=== PATIENT | female | born 1945 | race Two or more races ===

== ENCOUNTER → 2022-12-21 12:44 | Outpatient (BNVA) | payer MEDICARE, SELFPAY | PROVIDERS: PCP Physician Assistant; Visit Provider Nurse Practitioner Family | DX: F09 Unspecified mental disorder due to known physiological condition (principal); I48.91 Unspecified atrial fibrillation; I10 Essential (primary) hypertension; E11.9 Type 2 diabetes mellitus without complications; E78.5 Hyperlipidemia, unspecified; D64.9 Anemia, unspecified | CPT/HCPCS: 99202 ==

== ENCOUNTER 2023-01-31 12:45 | Outpatient (REF) | payer MEDICARE, SELFPAY ==
--- NOTE | 2023-01-31 12:50 | EEG_ITS ---
This is a 16-channel EEG with an EKG lead. Patient is reported awake during the tracing. Background EEG rhythm is 7 to 8 hertz, 5 to 30 microvolt posteriorly and lower amplitude fast anteriorly. Photic stimulation does not produce any significant driving. Hyperventilation is not performed. Cardiac lead does not reveal any significant abnormality. No obvious sharp wave spikes or paroxysmal tendency or asymmetry noted. IMPRESSION: Generalized slowing with no evidence of seizure disorder. MD NIRMALA Zacarias/VIOLETA / [id number]
== END 2023-01-31 12:46 | disposition home or self-care (01) ==
LOC: HO.NEURO 12:45
PROVIDERS: Visit Provider Nurse Practitioner Family
DX: F09 Unspecified mental disorder due to known physiological condition (principal)
CPT/HCPCS: 95816

== ENCOUNTER 2023-04-06 10:42 | Outpatient (AMB) | payer MEDICARE, SELFPAY ==
[2023-04-06 10:46] VITALS: BP 138/84; PULSE 70; O2SAT 92; BMI 32.4
--- NOTE | 2023-04-06 10:46 | MHC.OFFVIS ---
Intake Vital Signs 04/06/23 10:46 Height 5 ft 2 in Weight 177 lb BMI 32.4 BP 138/84 Blood Pressure Location Rt brachial Position Sitting Pulse 70 Pulse Source Pulse Oximeter Pulse Oximetry (%) 92 Oxygen Delivery Method Room Air Intake Visit Reasons: 3m follow up Memory Loss worsening - Confirmed Intake Note: Patient presents for 3 month follow up. Patient states she forgets alot of things,she forgets to take her medication alot. ([facility]) Allergies No Known Allergies Allergy (Verified 04/06/23 10:50) Medication List - Last Reconciled 04/06/23 by SUZANNE Patrick acetaminophen ER 650 mg PO BID albuterol sulfate mg inhalation Q4H PRN albuterol sulfate 90 mcg/actuation 2 puffs inhalation Q6H PRN apixaban (Eliquis) 5 mg PO BID aspirin 1 tab PO DAILY atorvastatin 40 mg PO BEDTIME budesonide-formoterol 160-4.5 mcg/actuation (Symbicort) inhalation BID carvedilol 25 mg PO BID folic acid 1 mg PO DAILY furosemide 20 mg PO DAILY levothyroxine 75 mcg PO QAM lisinopril 20 mg PO DAILY memantine 7 mg PO DAILY 30 days montelukast 10 mg PO BEDTIME omeprazole 20 mg PO QAM spironolactone 25 mg PO DAILY HPI HPI Comments History of Present Illness Details 77-yr-old female presents for f/u visit. Pt denies any significant interval medical changes, however granddtr reports that cardiology is concerned that pt is declining. Possibly because pt may skip or forget to take her medication. Cardiology was to order an urgent sleep study. Pt endorses snoring, nocturia, sleeps from 12am- 10-11ama nd then still needs an early afternoon nap. She did start Namenda xr 7mg- she is tolerating it ok. Pt continues to live home alone. She has 9 hrs of FINGERPRINT CLERK care (her granddtr) and her family who lives in the building continues to cook for her (one good meal a day). Granddtr is hoping pt can have increased FINGERPRINT CLERK hrs, however pt repeatedly tells her insurance nurse telephonic nurse case manager that she is fine and more Ind than she really is. Pt has declined to use a timed med dispenser or most home adaptive equipment. Brain MRI- not done as pacemaker is not MRI compatible. Head CT ordered instead- but pt declined to do through at [facility]. EEG- mild slowly but no seizure activity. Labs- MAGAN- neg, B12- 741 NL, Folic acid- 17.9- NL, homocysteine- 11.7 NL, MMA- 262 NL, RPR- neg, ESR- 23 H, high-sensitivity CRP 4.16 [facility]. [facility] Medical History (Updated 12/21/22 @ 16:37 by SUZANNE Patrick) Anemia Asthma Atrial fibrillation Diabetes HLD (hyperlipidemia) HTN (hypertension) Tubular adenoma Surgical History S/P placement of cardiac pacemaker Family History Mother Heart disease Asthma Sister Dementia Daughter HIV (human immunodeficiency virus infection) Social History Alcohol intake: never Patient Tobacco Use Status: Former Tobacco user Review of Systems Const All systems reviewed & are unremarkable except as noted in HPI and below Physical Exam Vital Signs: Last Vital Signs Pulse 70 04/06/23 10:46 BP 138/84 04/06/23 10:46 Pulse Ox 92 04/06/23 10:46 Oxygen Delivery Method Room Air 04/06/23 10:46 BMI result Body Mass Index 32.4 Const General: cooperative and no acute distress Orientation/consciousness: oriented to person HEENT Head: Yes normocephalic Resp Effort & Inspection: normal respiratory effort and able to speak in complete sentences Neuro Other: A&O to person, place. Responding appropraitely overall w/ some STM lapses. General: oriented to person and gait normal Psych Appearance: grossly normal Speech and movement: Normal speech and movement present Affect: normal affect Attitude: cooperative Assessment & Plan Assessment & Plan (1) Cognitive dysfunction: Code(s): F09 - Unspecified mental disorder due to known physiological condition Plan Increase Namenda XR from 7mg to 14mg qd. Reviewed labs for common etiologies of cognitive impairment- overall unremarkable, ESR and CRP slightly elevated- likely r/t CV dz Reviewed EEG- mild slowing Comprehensive neuro-psych testing as ordered Discussed that pt likely does need increased assistance, however if pt is refusing or not admitting to needing help, we cannot make her to accept increased help at this point. Future considerations- sleep study (through [facility]) if not already ordered by cardiology. f/u in 3 months or sooner prn. Medications: New memantine 14 mg PO DAILY 30 days 30 ea 3RF Discontinued memantine Discontinued Reason: Doctor's Order 7 mg PO DAILY 30 days 30 ea 3RF Coding Level of Care Code Est Pt Level 3 (60865) Diagnoses Cognitive dysfunction F09
== END 2023-04-06 11:32 | disposition home or self-care (01) ==
PROVIDERS: Visit Provider Nurse Practitioner Family
DX: R41.89 Other symptoms and signs involving cognitive functions and awareness (principal)
CPT/HCPCS: 99213

== ENCOUNTER → 2023-04-06 10:42 | Outpatient (BNVA) | payer MEDICARE, SELFPAY | PROVIDERS: Visit Provider Nurse Practitioner Family | DX: F09 Unspecified mental disorder due to known physiological condition (principal); Z79.899 Other long term (current) drug therapy | CPT/HCPCS: 99212 ==

== ENCOUNTER 2025-08-12 10:17 | Outpatient (REF) | payer MEDICARE, MEDICAID, SELFPAY ==
[2025-08-12 14:28] LABS: MANUAL DIFF FLAG NO
[2025-08-12 14:31] LABS: Hematocrit 36.8 % (37.0-47.0); Hemoglobin 11.1 g/dl (12.0-16.0); Imm Gran Abs Auto 0.02 X10*3/uL (0.00-0.03); Imm Gran Pct Auto 0.3 % (0.0-0.4); Lymphocytes Absolute Auto 1.4 X10*3/uL (1.2-4.9); Mean Corpuscular HGB Conc 30.2 g/dl (31.0-35.0); Mean Corpuscular Hemoglobin 26.1 pg (27.0-33.0); Mean Corpuscular Volume 86.6 fL (80.0-98.0); NRBC Abs Auto 0.000 X10*3/uL (0.0-0.012); NRBC Pct Auto 0.0 /100WBC (0.0-0.2); Platelet Count 276 X10*3/uL (160-400); Red Blood Count 4.25 X10*6/uL (4.20-5.50); White Blood Count 6.7 X10*3/uL (4.8-10.8)
[2025-08-12 14:36] LABS: Alanine Aminotransferase 15 U/L (0-31); Albumin Level 4.1 g/dL (3.5-5.0); Alkaline Phosphatase 73 U/L (39-117); Anion Gap 9 (12-20); Aspartate Amino Transferase 21 U/L (5-31); Blood Urea Nitrogen 14 mg/dL (9-16); Calcium 9.3 mg/dL (8.4-10.2); Carbon Dioxide 33 mmol/L (22-29); Chloride 101 mmol/L (96-108); Estimated Glomerular Filt Rate > 60; Potassium 4.2 mmol/L (3.3-5.1); Sodium 139 mmol/L (135-145); Total Protein 7.6 g/dL (6.5-8.0)
== END 2025-08-12 10:18 | disposition home or self-care (01) ==
LOC: HO.HKASLDS 10:17
PROVIDERS: PCP Physician Assistant; Visit Provider Nurse Practitioner Family
DX: F09 Unspecified mental disorder due to known physiological condition (principal); I48.91 Unspecified atrial fibrillation; E78.5 Hyperlipidemia, unspecified; I10 Essential (primary) hypertension; Z79.899 Other long term (current) drug therapy; Z87.891 Personal history of nicotine dependence
CPT/HCPCS: 36415; 80053; 85025; 99212

== ENCOUNTER 2025-08-12 10:17 | Outpatient (AMB) | payer MEDICARE, MEDICAID, SELFPAY ==
--- OUTSIDE RECORDS SUMMARY | 2025-08-07 | XMS_ITS | Encounter Summary ---
Author Organization [employer] Address [address] [place] [address] Care Team Providers Care Finance Associate Name Role Phone Manju Lieberman Primary Care Provider [phone] Encounter Details Date Type Department Care Team (Late Contact Info) Description 08/07/2025 Ancillary Procedure [facility] - [facility] [address] [facility] [address] [place] [address] Social History Tobacco Use Types Packs/Day Years Used Date Smoking Tobacco: Former Smokeless Tobacco: Never Alcohol Use Standard Drinks/Week Comments Not Currently 0 (1 standard drink = 0.6 oz pur e alcohol) Interpersonal Safety Answer Date Record ed Physical Abuse Unrecognized value 08/26/2024 Verbal Abuse Unrecognized value 08/26/2024 Comments Unknown Sex and Gender Information Value Date Recorded Sex Assigned at Female 08/25/2024 7:36 PM EST Legal Sex Female 12:01 PM EST Gender Identity Female 08/25/2024 7:36 PM EST Sexual Orientation Straight 08/25/2024 7: 36 PM EST documented as of this encounter Plan of Treatment Upcoming Encounters Date Type Department Care Team (Late Contact Info) Description 08/25/2025 10:40 AM EST Office Visit [facility] - [address] [facility] [address] [place] [address] Britney aMr NP [address] [place] [address] [place] [address] 12/21/2025 11:00 AM EDT Ancillary Procedure [facility] - [address] [place] [address] documented as of this encounter Procedures Procedure Name Priority Date/Time Associated Diagnosis Comments CARDIAC DEVICE CHECK- REMOTE- MURJ Routine 08/06/2025 1:11 AM EST documented in this encounter Results * Cardiac device check - Remote- MURJ (08/06/2025 1:11 AM EST) Date Time Interrogation Session [id number] CV DEVICE CHECK Type Interrogation Session Remote Scheduled CV DEVICE CHECK Implantable Pulse Generator Peer Financial Counselor [employer] CV DEVICE CHECK Implantable Pulse Generator Type WAFER POLISHING WORKER-D CV DEVICE CHECK Implantable Pulse Generator Model [id number] [place] Net 263 MP(TM) CV DEVICE CHECK Implantable Pulse Generator Serial Number [id number] CV DEVICE CHECK Implantable Pulse Generator Implant Date [id number] CV DEVICE CHECK Battery Remaining Percentage 49.00 CV DEVICE CHECK Battery Remaining Longevity 37.0 CV DEVICE CHECK Battery Voltage 2.950 CV D EVICE CHECK Battery CLIENT DELIVERY MANAGER Trigger 2.590 CV DEVICE CHECK Battery Status Middle of Service CV DEVICE CHECK Capacitor Charge Time 8.400 CV DEVICE CHECK Natanael Statistic RA Percent Paced 32.00 CV DEVICE CHECK Natanael Statistic RV Percent Paced 100.00 CV DEVICE CHECK WAFER POLISHING WORKER Statistic WAFER POLISHING WORKER Percent Paced 97.00 CV DEVICE CHECK Atrial Tachy Statistic AT/AF [place] Percent 7.00 CV DEVICE CHECK Lead Channel Sensing Intrinsic Amplitude 0.900 CV DEVICE CHECK Lead Channel Setting Sensing Sensitivity 0.30 CV DEVICE CHECK Lead Channel Impedance Value 310 CV DEVICE CHECK Lead Channel Pacing Threshold Amplitude 0.625 CV DEVICE CHECK Lead Channel Pacing Threshold Pulse Width 0.5 CV DEVICE CHECK Lead Channel RA Pacing Threshold Date 2025-07-25 CV DEVICE CHECK Lead Channel Setting Pacing Amplitude 2.500 CV DEVICE CHECK Lead Channel Setting Pacing Pulse Width 0.5 CV DEVICE CHECK Lead Channel Sensing Intrinsic Amplitude 12.000 CV DEVICE CHECK Lead Channel Setting Sensing Sensitivity 0.50 CV DEVICE CHECK Lead Channel Impedance Value 660 CV DEVICE CHECK Lead Channel Pacing Threshold Amplitude 0.625 CV DEVICE CHECK Lead Channel Pacing Threshold Pulse Width 0.5 CV DEVICE CHECK Lead Channel RV Pacing Threshold Date 2025-07-25 CV DEVICE CHECK Lead Channel Setting Pacing Amplitude 2.000 CV DEVICE CHECK Lead Channel Setting Pacing Pulse Width 0.5 CV DEVICE CHECK Lead Channel Impedance Value 580 CV DEVICE CHECK Lead Channel Pacing Threshold Amplitude 1.250 CV DEVICE CHECK Lead Channel Pacing Threshold Pulse Width 1.0 CV DEVICE CHECK Lead Channel Pacing Threshold Date 2025-07-25 CV DEVICE CHECK Lead Channel Setting Pacing Amplitude 2.250 CV DEVICE CHECK Lead Channel Setting Pacing Pulse Width 1.0 CV DEVICE CHECK Natanael Setting Mode (NBG Code) DDD CV DEVICE CHECK Ventricular chambers paced during WAFER POLISHING WORKER pacing. BiV CV DEVICE CHECK Natanael Setting Lower Rate Limit 65 CV DEVICE CHECK Natanael Setting AT Mode Switch Rate 180 CV DEVICE CHECK Natanael Setting Maximum Tracking Rate 120 CV DEVICE CHECK Natanael Setting Maximum Sensor Rate 120 CV DEVICE CHECK Natanael Setting PAV Delay 140 CV DEVICE CHECK Natanael Setting BAM Delay 90 CV DEVICE CHECK WAFER POLISHING WORKER LV-RV Delay 20 CV D EVICE CHECK Therapy Statistic Recent Shocks Delivered 0 CV DEVICE CHECK Therapy Statistic Recent Shocks Aborted 0 CV DEVICE CHECK Therapy Statistic Recent ATP Delivered 0 CV DEVICE CHECK Shock Measured Impedance 68 CV DEVICE CHECK Zone Setting Type Category VT CV DEVICE CHECK Rate 130 CV DEVICE CHECK Zone Setting Status On CV DEVICE CHECK Zone ID 1 CV DEVICE CHECK Zone Setting Type Category VT CV DEVICE CHECK Zone Setting Status Inactive CV DEVICE CHECK Zone ID 2 CV DEVICE CHECK Zone Setting Type Category VF CV DEVICE CHECK Rate 214 CV DEVICE CHECK Therapies 36.0J,40.0J,40.0J x 4 CV DEVICE CHECK Zone Setting Status On CV DEVICE CHECK Zone ID 3 CV DEVICE CHECK Date of Service 2025-08-30 CV DEVICE CHECK Anatomical Region Laterality Modality Device Interroga tion 07/25/2025 2:00 AM EST Impressions 08/05/2025 7:32 PM EST Heart Failure Diagnostic: Stable * Heart failure diagnostics assessed through the device * Status: Stable * No overt HF present Narrative Procedure Note Madison Peterson MD - 08/06/2025 IMPRESSION: Heart Failure Diagnostic: Stable * Heart failure diagnostics assessed through the device * Status: Stable * No overt HF present us Madison Peterson MD CV IMPLANTABLE CARDIAC DEV ICE PROCEDURES Final Result documented in this encounter Visit Diagnoses Not on filedocumented in this encounter Care Teams Finance Associate Relationship Specialty Start Date End Date Manju Lieberman PA [address] [place] [phone] PCP - General Internal Medicine 03/21/22 documented as of this encounter
--- NOTE | 2025-08-12 10:53 | A.OFFVIS_ITS ---
Vital Signs 08/12/25 11:05 BP 110/82 Blood Pressure Location Lt brachial Position Sitting Pulse 82 Pulse Source Pulse Oximeter Pulse Oximetry (%) 94 Oxygen Delivery Method Room Air Intake Visit Reasons: Follow up, memory loss Intake Note: Patient presents for 3 month follow up. Patient states she forgets alot of things,she forgets to take her medication alot. ([facility]) Drafter Seismograph Required: No Accompanied by: Self / Same As Patient Allergies No Known Allergies Allergy (Verified 08/12/25 10:53) Medication List - Last Reconciled 08/12/25 by SUZANNE Patrick acetaminophen ER 650 mg PO BID albuterol sulfate mg inhalation Q4H PRN albuterol sulfate 90 mcg/actuation 2 puffs inhalation Q6H PRN apixaban (Eliquis) 5 mg PO BID aspirin 1 tab PO DAILY atorvastatin 40 mg PO BEDTIME budesonide-formoterol 160-4.5 mcg/actuation (Symbicort) inhalation BID carvedilol 25 mg PO BID folic acid 1 mg PO DAILY furosemide 20 mg PO DAILY levothyroxine 75 mcg PO QAM lisinopril 20 mg PO DAILY memantine 14 mg PO DAILY 30 days montelukast 10 mg PO BEDTIME omeprazole 20 mg PO QAM spironolactone 25 mg PO DAILY HPI Comments Details: 77-yr-old female presents for f/u visit for germania auguste accompanied by Jeanie post, and Bozena ORONA. Patient was last seen by this provider in March 2023. She has had an increase in falls- 4 in the past year-, recently sustained a fall with head lacerations requiring suturing. She has a cane, and has a walker- but prefers to use the cane. The falls just seem to happen with balance difficulties, more so in the evening. She now has home care services- including [facility], PT, [employer] services- with both morning and evening hours. Her daughter still lives locally, and is very supportive. She does still live alone. The patient herself states she is okay overall. Her daughter reports ongoing short-term memory difficulties. She was leaving her home at night (during this past summer), without her [place] fob, and would be stuck outside until someone would let her back in- even hours later. This is not happening since she started having home [employer] services. However, other times, she does not want to leave her home- wants appointments to be cancelled. May be teary at times. Denies behaviors. She can have shoulder and back pain. Denies syncope. Denies vision changes- but has not had an eye exam in a while. She did start Namenda xr - possibly 14mg daily. Previous work-up: Brain MRI- not done as pacemaker is not MRI compatible. Head CT ordered instead- but pt declined to do through at [facility]. EEG- mild slowly but no seizure activity. Labs- MAGAN- neg, B12- 741 NL, Folic acid- 17.9- NL, homocysteine- 11.7 NL, MMA- 262 NL, RPR- neg, ESR- 23 H, high-sensitivity CRP 4.16 H. [facility] Medical History (Updated 12/21/22 @ 16:37 by SUZANNE Patrick) Tubular adenoma Diabetes Asthma Anemia HLD (hyperlipidemia) HTN (hypertension) Atrial fibrillation Surgical History S/P placement of cardiac pacemaker Family History Mother Heart disease Asthma Sister Dementia Daughter HIV (human immunodeficiency virus infection) Social History Alcohol intake: never Patient Tobacco Use Status: Former Tobacco user Review of Systems Const All systems reviewed & are unremarkable except as noted in HPI and below Physical Exam Vital Signs: Last Vital Signs Pulse 82 08/12/25 11:05 BP 110/82 08/12/25 11:05 Pulse Ox 94 08/12/25 11:05 Oxygen Delivery Method Room Air 08/12/25 11:05 Const General: cooperative and no acute distress Orientation/consciousness: oriented to person HEENT Head: Yes normocephalic Resp Effort & Inspection: normal respiratory effort and able to speak in complete sentences Neuro Other: A&O to person, place. Unable to state the date, year, season, or current president. Responding appropriately overall w/ some STM lapses. Able to identify both a pen and a watch. General: oriented to person and gait normal Psych Appearance: grossly normal Speech and movement: Normal speech and movement present Affect: normal affect Attitude: cooperative Assessment & Plan Assessment & Plan (1) Cognitive dysfunction: Code(s): F09 - Unspecified mental disorder due to known physiological condition Category: Medical Plan Continue Namenda XR- the daughter will call to confirm for current dosage. If renal function is within normal limits, and her memantine XR dose is 14 mg, we will increase the dose to 21 mg for 1 month, and then increase to 28 mg daily. We will check updated CBC and CMP. Continue supportive care, with [employer] services. Continue to optimize cardiovascular risk factors. Continue to encourage patient to engage in regular cognitive, social, and physical activity. Future considerations- sleep study (through [facility]) f/u in 6 months or sooner prn. Orders: Orders Complete Blood Count Auto Diff 08/12/25 E78.5 - Hyperlipidemia, unspecified, I10 - Essential (primary) hypertension, I48.91 - Unspecified atrial fibrillation Comprehensive Met. Panel 08/12/25 E78.5 - Hyperlipidemia, unspecified, I10 - E ssential (primary) hypertension, I48.91 - Unspecified atrial fibrillation Coding Level of Care Code Est Pt Level 3 (48378) Diagnoses Cognitive dysfunction F09
[2025-08-12 11:05] VITALS: BP 110/82; PULSE 82; O2SAT 94
--- OUTSIDE RECORDS SUMMARY | 2025-08-12 11:22 | XMS_ITS ---
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 Role Phone Tiffany Benjamin Unavailable [phone] [facility] Unavailable Reason for Referral Not Available Allergies, adverse reactions, alerts No known allergies History of medication use Medication Class Instructions Start Date End Date Albuterol Sulfate HFA 108 (9 0 Base) MCG/ACT Aerosol Solution INHALE 2 PUFFS INTO THE LUNGS EVERY 6 HOURS NEEDED FOR SHORTNESS OF BREATH & OR WHEEZING 2021-11-29 No Data Available Montelukast Sodium 10 mg Tab TAKE 1 TABL ET BY MOUTH NIGHTLY AT BEDTIME 2021-12-05 No Data Available Symbicort 160-4.5 MCG/ACT Aerosol Inhalation inhale 2 puffs by mouth twice daily 2022-01-12 No Data Available Aspirin Low Dose 81 mg Tab Chewable No Data Available 2021-12-05 No Data Available Atorvastatin Calcium 40 mg Tab TAKE 1 TABLET BY MOUTH DAILY 2021-12-05 No Data Available Eliquis 5 mg Tab 1 tablet once daily 2021-12-05 No D missy Available Furosemide 20 mg Tab TAKE 1 TABLET BY [facility] ONCE DAILY 2021-12-05 No Data Available Lisinopril 10 mg Tab TAKE 1 TABLET BY [facility] ONCE DAILY 2021-12-05 No Data Available Omeprazole 20 mg Cap delayed rel TAKE 1 CAPSULE BY MOUTH MORNING BEFORE BREAKFAST 2021-12-05 No Data Available Levothyroxine Sodium 75 MCG Tab 1 tablet orally once daily 2022-03-01 No Data Avail able Carvedilol 25 mg Tab 1 tablet orally one time daily 2021 No Data Available Acetaminophen ER 650 mg Tab ER TOME FIONA TABLETA DOS VECES AL D A 2022-03-27 No Data Available Folic Acid 1 mg Tab take 1 tablet orally once daily 2021-12-05 No Data Available Spironolactone 25 mg Tab TAKE 1 TABLET B Y MOUTH DAILY. 2021 No Data Available Problem List Problem Status Onset Date Resolved Date Synopsis Hypothyroidism Active 2022-05 N/A On Levothyroxine HLD (hyperlipidemia) Active 2022-05 N/A On AtorvastatinEncouraged ph ysical activityDiet low in saturated and trans fatHealthy diet, including lots of fruits and vegetables. GERD (gastroesophageal reflux disease) Active 2022-05 N/A On OmeprazoleAvoid spicy, fa tty or fried food, caffeine, chocolateAvoid lying down after mealsAvoid eating late at night Hypercoagulability due to atrial fibrillation Active 2022-06 N/A On EliquisFollows Cardiology Hypercoagulability due to atrial fibrillation Active 2022-06 N/A On EliquisFollows Cardiology Hypertension Active 2022-06 N/A On LisinoprilLow salt diet e ncouraged Vitamin B12 deficiency Active 2022-06 N/A On Folic acid COPD (chronic obstructive pulmonary disease) Active 2022-05 N/A On ProAirSymbicortMontelukas tFollows Transit Man 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 N/A On CarvedilolFurosemideSpironolactonewill monitor edema and weight, follows cardiology Encounters Encounters Type Facility Date of Service Diagnosis/Co mplaint No Data Available [facility] [place]22 Hypertensive heart disease w ith heart failureHeart failure, unspecifiedSecondary hyperaldosteronismHypothyroidism , unspecifiedGastro-esophageal reflux disease without esophagitisChronic obstructive pulmonary disease, unspecifiedOther thrombophiliaUnspecified atrial fibrillationDeficiency of other specified B group vitaminsHyperlipidemia, unspecified No Data Available [facility] ([place] 07[place]2022 No Data Available [facility] No Data Available [facility] No Data Available [facility] No Data Available [facility] No Data Available [facility] New patient,40-59min; chronic exacerbation, 2 stable chronic or 1 acute illness add add modifier 95 for video (do not use for phone, instead use [id number]) [facility]18[place]2022 Hypertensive heart disease w ith heart failureHeart failure, unspecifiedSecondary hyperaldosteronismHyperlipidemia , unspecifiedHypothyroidism, unspecifiedGastro-esophageal reflux disease without esophagitisChronic obstructive pulmonary disease, unspecifiedOther thrombophiliaUnspecified atrial fibrillationDeficiency of other specified B group vitamins New patient,40-59min; chronic exacerbation, 2 stable chronic or 1 acute illness add add modifier 95 for video (do not use for phone, instead use [id number]) [facility] [place] New patient,40-59min; chronic exacerbation, 2 stable chronic or 1 acute illness add add modifier 95 for video (do not use for phone, instead use [id number]) [facility]18[place] New patient,40-59min; chronic exacerbation, 2 stable chronic or 1 acute illness add add modifier 95 for video (do not use for phone, instead use [id number]) [facility] [place] New patient,40-59min; chronic exacerbation, 2 stable chronic or 1 acute illness add add modifier 95 for video (do not use for phone, instead use [id number]) [facility] [place] New patient,40-59min; chronic exacerbation, 2 stable chronic or 1 acute illness add add modifier 95 for video (do not use for phone, instead use 38910-83) [facility] [place] New patient,40-59min; chronic exacerbation, 2 stable chronic or 1 acute illness add add modifier 95 for video (do not use for phone, instead use 91526-08) [facility]2022 Unlisted special service; to be used for medical record reviews and reporting CPTII codes (1111F, etc) [facility] ([place]) 09/16/2024 Encounter for other specifie d aftercare Unlisted special service; to be used for medical record reviews and reporting CPTII codes (1111F, etc) [facility] ([place] 09[place]2024 Vital Signs Date of Collection Vitals 2022-07-12 07:49:10 Height - 160.02 cmWe ight - 75.75 kgBody Mass Index (BMI) - 29.58 kg/m2 2022-07-18 11:29:30 Height - 160.02 cmWe ight - 75.75 kgBody Mass Index (BMI) - 29.58 kg/m2 Social History Social History Social History Observation Description Effec tive Time Current Smoking Status Never smoker 2025-07-15 1 Sex Female History of Procedures Procedures Service Procedure code Service date Servicing provider Phone# No Data Available 07158 2022-07-12 No Data Available No Data Available Medication List Documented (1159F) 1159F 2022-07-12 No Data Available No Data Alisha ilable Medication Review by prescribing provider or pharmacist documented (1160F) 1160F 2022-07-12 No Data Available No Data Alisha ilable Functional Status Assessed (1170F) 1170F 2022-07-12 No Data Available No Data Avail able Advance Care Directive Advance care planning discussion documented in the medical record (1158F) 1158F 2022-07-12 No Data Available No Data Availa ble BMI obtained (3008F) 3008F 2022-07-12 No Data Availab le No Data Available Pain Assessment - NO pain present (1126F) 1126F 2022-07-12 No Data Available No Data A vailable New patient,40-59min; chronic exacerbation, 2 stable chronic or 1 acute illness add add modifier 95 for video (do not use for phone, instead use [id number]) 49079 2022-07-18 No Data Available No Data Availa ble Medication List Documented (1159F) 1159F 2022-07-18 No Data Available No Data Alisha ilable Medication Review by prescribing provider or pharmacist documented (1160F) 1160F 2022-07-18 No Data Available No Data Alisha ilable Functional Status Assessed (1170F) 1170F 2022-07-18 No Data Available No Data Avail able Pain Assessment - NO pain present (1126F) 1126F 2022-07-18 No Data Available No Data A vailable Advance Care Directive Advance care planning discussion documented in the medical record (1158F) 1158F 2022-07-18 No Data Available No Data Availa ble BMI obtained (3008F) 3008F 2022-07-18 No Data Availab le No Data Available Unlisted special service; to be used for medical record reviews and reporting CPTII codes (1111F, etc) 91796 2024-09-16 No Data Available No Data Availa ble Medications prescribed in hospital were reviewed and reconciled against what they were taking prior to admission during today's visit. (1111F) 1111F 2024-09-16 No Data Available No Data Availa ble Functional Status Functional Category Effective Dates Cognition Status: Oriented to Person, Pl yolanda and Time 2022-07-12 ADL Eating: Independent; Amb ulation: Independent; Dressing: Independent; Bathing: Independent; Toileting: Independent 2022-07-12 Falls in last 6 Months: No 2022-07-12 IADL Shopping: total assist; Housekeeping: Independent: total assist Medications Management: Independent 2022-07-12 Mental Status No Information Assessments Date of Service Assessments 2022-07-12 07:49:10 HLD (hyperlipidemia) CHF (congestive heart failure)HypothyroidismGERD (gastroesophageal reflux disease)COPD (chronic obstructive pulmonary disease)Hypercoagulability due to atrial fibrillationHypertensionVitamin B12 deficiency 2022-07-18 11:29:30 HLD (hyperlipidemia) CHF (congestive heart failure)HypothyroidismGERD (gastroesophageal reflux disease)COPD (chronic obstructive pulmonary disease)Hypercoagulability due to atrial fibrillationHypercoagulability due to atrial fibrillationHypertensionVitamin B12 deficiency Plan of Care Date of Service Plans 2022-07-12 07:49:10 Pain Assessment - NO pain documented (1126F)Medication Review by prescribing provider or pharmacist documented (1160F)Medication List Documented (1159F)Functional Status Assessed (1170F)Advance Care Directive Advance care planning discussion documented in the medical record (1158F)BMI obtained (3008F)Phone (patient, parent, or guardian); 21-30 minutes of medical discussion (no modifier 95)Continue to see PCP. Follow-up with [facility] as needed for any acute or disease education needs that may arise.On AtorvastatinEncouraged physical activityDiet low in saturated and trans fatHealthy diet, including lots of fruits and vegetables.On CarvedilolFurosemideSpironolactonewill monitor edema and weight, follows cardiologyOn LevothyroxineOn OmeprazoleAvoid spicy, fatty or fried food, caffeine, chocolateAvoid lying down after mealsAvoid eating late at nightOn ProAirSymbicortMontelukastFollows PulmonologistOn EliquisFollows CardiologyOn LisinoprilLow salt diet encouragedOn Folic acid 2022-07-18 11:29:30 Pain Assessment - NO pain documented (1126F)Medication Review by prescribing provider or pharmacist documented (1160F)Medication List Documented (1159F)Functional Status Assessed (1170F)Advance Care Directive Advance care planning discussion documented in the medical record (1158F)BMI obtained (3008F)Televideo new patient,40-59min; chronic exacerbation, 2 stable chronic or 1 acute illness add modifier 95Continue to see PCP. Follow-up with [facility] as needed for any acute or disease education needs that may arise.On AtorvastatinEncouraged physical activityDiet low in saturated and trans fatHealthy diet, including lots of fruits and vegetables.On CarvedilolFurosemideSpironolactonewill monitor edema and weight, follows cardiologyOn LevothyroxineOn OmeprazoleAvoid spicy, fatty or fried food, caffeine, chocolateAvoid lying down after mealsAvoid eating late at nightOn ProAirSymbicortMontelukastFotrever PulmonologistOn EliemiliaisFobettyows CardiologyOn EliquisFollows CardiologyOn LisinoprilLow salt diet encouragedOn Folic acid Goals Date Goal 2022-07-12 Remember to 2022-07-12 Call me if 2022-07-12 Keep it up 2022-07-18 Remember to 2022-07-18 Call me if 2022-07-18 Keep it up
--- OUTSIDE RECORDS SUMMARY | 2025-08-12 11:23 | XMS_ITS | Clinical Summary ---
Author Organization [facility] Address [address] [place] [address] Phone Care Team Providers Care Labor Relations Or Personnel Negotiator Name Role Phone Manju Lieberman Primary Care Provider [phone] Allergies Active Allergy Reactions Criticality Noted Date Comments Quetiapine Dizziness Medium 06/07/2025 Medications acetaminophen (TYLENOL 8 HOUR) 650 mg 8 hr tablet Take 1 tablet (650 mg total) by mouth 2 (two) times a day. Active apixaban (ELIQUIS) 5 mg tablet Take 5 mg by mouth 2 times daily. 1 Active albuterol HFA (PROAIR HFA ; PROVENTIL HFA ; VENTOLIN HFA) 90 mcg/actuation inhaler Inhale 2 puffs by mouth every 4 (four) hours if needed for wheezing or shortness of breath. Active montelukast (SINGULAIR) 10 mg tablet Take 1 tablet (10 mg total) by mouth at bedtime. 30 each 5 Active carvediloL (COREG) 12.5 mg tablet Take 1 tablet (12.5 mg total) by mouth 2 (two) times a day with meals. 60 each 11 5 08/29/19 Active Additional Information Patient taking differently: 25 mgoral2 times daily, Reported on 06/07/2025 lisinopriL (PRINIVIL,ZESTR IL) 10 mg tablet Take 1 tablet (10 mg total) by mouth 1 (one) time each day. 30 each 5 08/29/19 26 Active tiotropium (SPIRIVA) 18 mcg per inhalation capsule Place 1 capsule (18 mcg total) into inhaler and inhale 1 (one) time each day. 1 each Active Additional Information Patient not taking.Reported on 06/07/2025 folic acid (FOLVITE) 1 mg tablet Take 1 tablet (1 mg total) by mouth 1 (one) time each day. Active atorvastatin (LIPITOR) 40 mg tablet Take 1 tablet (40 mg total) by mouth at bedtime. Active albuterol 1.25 mg/3 mL nebulizer solution Take 3 mL (1.25 mg total) by nebulization every 4 (four) hours if needed for wheezing or shortness of breath. Active budesonide-form oteroL (SYMBICORT) 160-4.5 mcg/actuation inhaler Inhale 1 puff by mouth 2 (two) times a day. Rinse mouth with water after use to reduce aftertaste and incidence of candidiasis. Do not swallow. Active memantine (NAMENDA) 5 mg tablet Take 1 tablet (5 mg total) by mouth 2 (two) times a day. Active QUEtiapine (SEROquel) 25 mg tablet Take 1 tablet (25 mg total) by mouth at bedtime. Active Active Problems Problem Noted Date Diagnosed Date Secondary hypercoagulable state 09/22/2024 Cardiac resynchronization th erapy defibrillator (FOOD PROCESSING CHEMIST-D) in place 09/22/2024 Class 2 severe obesity due t o excess calories with serious comorbidity and body mass index (BMI) of 35.0 to 35.9 in adult 07/15/2024 Chronic fatigue 04/04/2023 Combined systolic and diastolic congestive heart failure 04/04/2023 Daytime somnolence 04/04/2023 Shortness of breath 04/04/2023 Nonischemic cardiomyopathy 05/27/2021 Overview (07/15/2024): Last Assessment & Plan: Appears euvolemic, has no ischemic or heart failure symptoms. Reviewed signs and symptoms of heart failure and educated regarding monitoring weight, diet, and fluid intake. If there is a weight gain of 3 pounds in one day or 5 pounds in a week please call our office or seek medical attention if necessary. Atrial fibrillation 09/03/2014 Overview (07/15/2024): [facility] Diagnostic Imaging Department [address] [place] [id number] Patient: SUSHIL MCCULLOUGH Franklin Pisano./Age/Sex: 1945 - 73 - F Unit#: [id number] Location/Status: SP4ORT/ADM Jalen Mnemonic/[facility]ing [facility] Ordering Physician: YADIRA ELLINGTON RETENTION SPECIALIST 2D ECHO with Color Flow Dopp - 07/22/19 - Technically limited study. 1. LV wall thickness is mildly increased at 12 to 13 mm. Internal chamber dimensions are normal. I see no discrete wall motion abnormalities and estimate the ejection fraction to be in the range of 50%. Parameters of diastolic function appear to be normal 2. Normal right ventricle with a pacing wire visible. Normal function. 3. Normal left atrium. 4. Normal right atrium. 5. Normal appearing aortic root measuring 3/2 cm. Normal ascending aorta at 3.7 cm. 6. Normal appearing aortic valve without stenosis or insufficiency. 7. Mild mitral annular calcification. Mild thickening of the mitral leaflets and chordal apparatus. No mitral stenosis. Trace mitral insufficiency. 8. Normal appearing tricuspid valve with a trace of insufficiency. PA systolic pressures are estimated to be normal at about 26 mm Hg with a normal IVC. 9. Normal pulmonic valve. Trace insufficiency. 10. normal pericardium. 11. This patient had an echocardiogram at [facility] on 05/19/2019 estimated an ejection fraction of 45-50% and no significant valvular disease. Dictating Physician: JESSICA ALEX MD Electronically Signed by: JESSICA ALEX MD Dic Date/Time: 07/22/19 1502 Sign date/Time: 07/22/19 1506 Hyperlipidemia 12/23/2013 Overview (07/15/2024): Last Assessment & Plan: Needs to update fasting labs, continue statin. Hypertension, essential 06/30/2013 Overview (07/15/2024): Last Assessment & Plan: Controlled, continue current regimen. Resolved Problems Problem Noted Date Diagnosed Date Resolved Date Dehydration 08/26/2024 08/29/2024 Encounters Date Type Department Care Team Description 08/07/2025 Ancillary Procedure [facility] Cardiology [facility] [address] [facility] [address] [place] [address] 06/28/2025 6:15 PM EST Ancillary Procedure [facility] [address] [facility] [address] [place] [address] 06/07/2025 11:44 AM EDT - 06/08/2025 4:22 PM EDT Emergency [facility] [address] [place] [address] Jb Josue MD Landry, Jonathan P, MD Gordon, Ruth, MD Corrado, Adam D, MD Closed head injury, initial encounter (Primary Dx); Altered mental status, unspecified altered mental status type; Abnormal urinalysis; Poorly-controlled hypertension; Current use of oil heaterman anticoagulation; Dementia without behavioral disturbance, psychotic disturbance, mood disturbance, or anxiety, unspecified dementia severity, unspecified dementia type (CMS/HCC V24, CMS/HCC V28); Frequent falls Discharge Disposition: Home or Self Care 05/29/2025 4:10 AM EDT Ancillary Procedure [facility] Cardiology [facility] [address] [facility] [address] [place] [id number] from Last 3 Months Immunizations Immunization Administration Dates Next Due Moderna SARS-CoV-2 COVID-19, mRNA, LNP-S, preservative free 10/16/2020,09/18/2020 Medical History Medical History Date Comments Asthma Dementia ([facility] V24, [facility] V28) Family History Medical History Relation Name Comments Heart attack Father Relation Name Status Comments Father Social History Tobacco Use Types Packs/Day Years [...] Orientation Straight 08/25/2024 7: 36 PM EST Last Filed Vital Signs Vital Sign Reading Time Taken Comments Blood Pressure 171/85 06/08/2025 8:27 AM EDT Pulse 65 06/08/2025 8:27 AM EDT Temperature 36.6 C (97.8 F) 06/08/2025 7:22 AM EDT Respiratory Rate 18 06/08/2025 8:27 AM EDT Oxygen Saturation 94% 06/08/2025 8:27 AM EDT Inhaled Oxygen Concentration - - Weight 75.3 kg (166 lb) 06/07/2025 11:52 AM EDT Height 167.6 cm (5' 6 ) 06/07/2025 11:52 AM EDT Body Mass Index 26.79 06/07/2025 11:52 AM EDT Plan of Treatment Upcoming Encounters Date Type Department Care Team (Late st Contact Info) Description 08/25/2025 10:40 AM EST Office Visit [facility] Cardiology [facility] [address] [place] [address] Britney Saba NP [address] [place] [address] [place] [address] 12/21/2025 11:00 AM EDT Ancillary Procedure [facility] Cardiology [facility] [address] [place] [address] Health Maintenance Due Date Last Done Comments Diabetes: Annual Foot Exam 11/29/1955 Diabetes: Annual Retina Eye Exam 11/29/1955 DTaP,Tdap,and Td Vaccines (1 - Tdap) 11/29/1962 Zoster Vaccines (1 of 2) 11/29/1993 Pneumococcal Vaccine: 50+ Years (2 of 2 - PCV) 06/30/2014 06/30/2013 RSV Immunization Adult Patients (1 - 1-dose 75+ series) 11/29/2018 Medicare Annual Wellness Visit 07/22/2022 Osteoporosis Screening (Bone Density Screening) 07/22/2022 Social Influencers of Health Screening 07/22/2022 Diabetes: Annual Urine Albumin-Creatinine Ratio (uACR) 06/25/2024 01/23/2020, 01/23/2020, 12/10/2018, Additional history exists Depression Screening 08/13/2024 COVID-19 Vaccine ( season) 2025 07/16/2021, 10/16/2020, 09/18/2020 Influenza Vaccine (#1) 2025 , 04/04/2019, 05/18/2018, Additional history exists Diabetes: Blood Sugar Control Test (HGBA1C) 06/05/2025 12/04/2024, 01/23/2023, 01/23/2023 Falls Risk Assessment 08/29/2025 08/29/2024 Diabetes: Annual GFR (Glomerular Filtration Rate) 06/07/2026 06/07/2025, 12/04/2024, 08/28/2024, Additional history exists Hypertension/CHF/CAD Annual BMP Blood Test 06/07/2026 06/07/2025, 12/04/2024, 08/28/2024, Additional history exists Cholesterol Screening (Lipid Panel) 12/04/2029 12/04/2024, 12/04/2024, 01/23/2023, Additional history exists HIB Vaccines Aged Out No longer eligi ble based on patient's age to complete this topic HPV Vaccines Aged Out No longer eligi ble based on patient's age to complete this topic Hepatitis A Vaccines Aged Out No long er eligible based on patient's age to complete this topic Hepatitis B Vaccines Aged Out No long er eligible based on patient's age to complete this topic IPV Vaccines Aged Out No longer eligi ble based on patient's age to complete this topic MMR Vaccines Aged Out No longer eligi ble based on patient's age to complete this topic Meningococcal ACWY Vaccine Aged Out N o longer eligible based on patient's age to complete this topic Meningococcal B Vaccine Aged Out No l onger eligible based on patient's age to complete this topic RSV Immunization Patients Under 20 months Aged Out No longer eligible based on patient's age to complete this topic Varicella Vaccines Aged Out No longer eligible based on patient's age to complete this topic Medical Devices Implanted Type Area Armhole Sewer Device Identifier Shelf Expiration Date Model / Serial / Lot Abbt-Stju 3369-40q Quadra Assura Mp(Tm) [id number] Implanted:04/2022 (Quantity not on file) Cardiac FOOD PROCESSING CHEMIST-D ICD [facility] 3369-40Q QUADRA ASSURA MP(TM) / [id number] / Abbt-Stju Quadra Assura Mp 3369-40q [id number] Implanted:04/2022 (Quantity not on file) Cardiac FOOD PROCESSING CHEMIST-D ICD [facility] QUADRA ASSURA MP 3369-40Q / [id number] / Procedures Procedure Name Priority Date/Time Associated Diagnosis Comments CARDIAC DEVICE CHECK- REMOTE- MURJ Routine 08/06/2025 1:11 AM EST CARDIAC DEVICE CHECK- REMOTE- MURJ Routine 06/28/2025 6:13 PM EST ACTIVATED PARTIAL THROMBOPLASTIN TIME STAT 06/07/2025 7:08 PM EDT PROTHROMBIN TIME WITH INR STAT 06/07/2025 7:08 PM EDT XR CHEST 1 VIEW STAT 06/07/2025 3:[address] HEAD WO CONTRAST STAT 06/07/2025 2 :[address] CERVICAL SPINE WO CONTRAST STAT 06/07/2025 2:32 PM EDT ECG 12-LEAD STAT 06/07/2025 1:28 PM EDT FONTANA URINE CULTURE TUBE STAT 06/07/20 12:08 PM EDT URINALYSIS WITH REFLEX MICROSCOPIC AND CULTURE STAT 06/07/2025 12:08 PM EDT URINALYSIS WITH REFLEX MICROSCOPIC AND CULTURE STAT 06/07/2025 12:08 PM EDT CULTURE URINE STAT 06/07/2025 12:08 PM EDT RESPIRATORY VIRUS PANEL MOLECULAR STUDY STAT 06/07/2025 12:08 PM EDT CREATINE KINASE STAT 06/07/2025 11:58 AM EDT CBC WITH AUTO DIFFERENTIAL STAT 06/07/2025 11:58 AM EDT AMMONIA STAT 06/07/2025 11:58 AM EDT COMPREHENSIVE METABOLIC PANEL STAT 06/07/2025 11:58 AM EDT CBC AND DIFFERENTIAL STAT 06/07/2025 11:58 AM EDT CARDIAC DEVICE CHECK- REMOTE- MURJ Routine 05/29/2025 4:08 AM EDT HEMOGLOBIN A1C Routine 01/23/2023 LIPID PANEL Routine 01/23/2023 HM URINE ALBUMIN CREATININE RATIO Routine 01/23/2020 from Last 3 Months or Most Recently Relevant to Health Maintenance Results * Cardiac device check - Remote- MURJ (08/06/2025 1:11 AM EST) Only the most recent of3 resultswithin the time period is included. Pathologist [facility] Date Time Interrogation Session [id number] CV DEVICE CHECK Type Interrogation Session Remote Scheduled CV DEVICE CHECK Implantable Pulse Generator Armhole Sewer [facility] CV DEVICE CHECK Implantable Pulse Generator Type FOOD PROCESSING CHEMIST-D CV DEVICE CHECK Implantable Pulse Generator Model 3369-40Q Rob Snyder MP(TM) CV DEVICE CHECK Implantable Pulse Generator Serial Number [id number] CV DEVICE CHECK Implantable Pulse Generator Implant Date [id number] CV DEVICE CHECK Battery Remaining Percentage 49.00 CV DEVICE CHECK Battery Remaining Longevity 37.0 CV DEVICE CHECK Battery Voltage 2.950 CV D EVICE CHECK Battery MALTER OPERATOR Trigger 2.590 CV DEVICE CHECK Battery Status Middle of Service CV DEVICE CHECK Capacitor Charge Time 8.400 CV DEVICE CHECK Natanael Statistic RA Percent Paced 32.00 CV DEVICE CHECK Natanael Statistic RV Percent Paced 100.00 CV DEVICE CHECK FOOD PROCESSING CHEMIST Statistic FOOD PROCESSING CHEMIST Percent Paced 97.00 CV DEVICE CHECK Atrial Tachy Statistic AT/AF Colbert Percent 7.00 CV DEVICE CHECK Lead Channel [...] CV DEVICE CHECK Ventricular chambers paced during FOOD PROCESSING CHEMIST pacing. BiV CV DEVICE CHECK Natanael Setting Lower Rate Limit 65 CV DEVICE CHECK Natanael Setting AT Mode Switch Rate 180 CV DEVICE CHECK Natanael Setting Maximum Tracking Rate 120 CV DEVICE CHECK Natanael Setting Maximum Sensor Rate 120 CV DEVICE CHECK Natanael Setting PAV Delay 140 CV DEVICE CHECK Natanael Setting BAM Delay 90 CV DEVICE CHECK FOOD PROCESSING CHEMIST LV-RV Delay 20 CV D EVICE CHECK [...] Status: Stable * No overt HF present Madison Peterson MD CV IMPLANTABLE CARDIAC DEV ICE PROCEDURES Final Result * Activated Partial Thromboplastin Time - STAT (06/07/2025 7:08 PM EDT) aPTT 37.4 24.1 - 39.3 sec LAB COAGULATION METHOD 06/07/2025 8:03 PM EDT [facility] Blood Venous blood specimen / Unknown Venipuncture / Unknown 06/07/2025 7:08 PM EDT 06/07/2025 7:50 PM EDT us Jean Gonzales MD LAB BLOOD ORDERABLES Final Result [facility] [address] [place] [address], [place] [phone] * (ABNORMAL) Prothrombin Time with INR - STAT (06/07/2025 7:08 PM EDT) Protime 16.6(H) 10.6 - 13.9 sec LAB COAGULATION METHOD 06/07/2025 8:03 PM EDT [facility] INR 1.3 LAB COAGULATION METHOD 06/07/2025 8:03 PM EDT [facility] Blood Venous blood specimen / Unknown Venipuncture / Unknown 06/07/2025 7:08 PM EDT 06/07/2025 7:50 PM EDT us Jean Gonzales MD LAB BLOOD ORDERABLES Final Result [facility] [address] [place] [address], * XR Chest 1 View (06/07/2025 3:41 PM EDT) Anatomical Region Laterality Modality Body Radiographic Maria Esther ging 06/07/2025 3:53 PM EDT Impressions 06/07/2025 3:53 PM EDT FINDINGS/IMPRESSION: Left chest wall biventricular pacemaker/automatic implantable cardiac defibrillator with leads unchanged. No pneumonia or pulmonary edema. No pleural effusion or pneumothorax. Cardiac silhouette is stably enlarged. Degenerative changes seen throughout the bones. -------- FINAL REPORT -------- Dictated By: JESUS SAL Dictated Date: 06/07/2025 15:53 ET Assigned Physician: JESUS SAL Reviewed and Electronically Signed By: JESUS SAL Signed Date: 06/07/2025 15:53 ET Workstation ID: [id number] Transcribed By: Self Edit Transcribed Date: 06/07/2025 15:53 ET Narrative 06/07/2025 3:53 PM EDT XR CHEST 1 VIEW INDICATION: Cough TECHNIQUE: XR CHEST 1 VIEW COMPARISON: 08/25/2024 Procedure Note Jesus Sal MD - 06/07/2025 XR CHEST 1 VIEW INDICATION: Cough TECHNIQUE: XR CHEST 1 VIEW COMPARISON: 08/25/2024 IMPRESSION: FINDINGS/IMPRESSION: Left chest wall biventricular pacemaker/automaticimplantable cardiac defibrillator with leads unchanged. No pneumonia orpulmonary edema. No pleural effusion or pneumothorax. Cardiac silhouetteis stably enlarged. Degenerative changes seen throughout the bones. -------- FINAL REPORT -------- Dictated By: JESUS SAL Dictated Date: 06/07/2025 15:53 ET Assigned Physician: JESUS SAL Reviewed and Electronically Signed By: JESUS SAL Signed Date: 06/07/2025 15:53 ET Workstation ID: [id number] Transcribed By: Self Edit Transcribed Date: 06/07/2025 15:53 ET Jb Josue MD IMG XR PROCEDURES Final Result * CT Cervical Spine wo Contrast (06/07/2025 2:32 PM EDT) Anatomical Region Laterality Modality Spine, C-spine Computed Tomogra phy 06/07/2025 2:41 PM EDT Impressions 06/07/2025 2:44 PM EDT No acute cervical spine fracture. -------- FINAL REPORT -------- Dictated By: JESUS SAL Dictated Date: 06/07/2025 14:41 ET Assigned Physician: JESUS SAL Reviewed and Electronically Signed By: JESUS SAL Signed Date: 06/07/2025 14:44 ET Workstation ID: [id number] Transcribed By: Self Edit Transcribed Date: 06/07/2025 14:41 ET Narrative 06/07/2025 2:44 PM EDT PROCEDURE: Cervical spine CT INDICATION: Pain, trauma TECHNIQUE: Noncontrast CT of the cervical spine with multiplanar reformats. The examination was performed utilizing dose reduction techniques. Total DLP 842 COMPARISON: 08/25/2024. FINDINGS: No acute fracture or prevertebral swelling. Cervical alignment is within normal limits and similar compared to the prior exam. Multilevel degenerative changes are seen throughout the cervical spine with uncovertebral spurring and facet arthropathy present. No pneumothorax at the lung apices. Paraspinal muscles are normal. Left chest pacemaker leads are noted.. Procedure Note Jesus Sal MD - 06/07/2025 PROCEDURE: Cervical spine CT INDICATION: Pain, trauma TECHNIQUE: Noncontrast CT of the cervical spine with multiplanarreformats. The examination was performed utilizing dose reduction techniques. TotalDLP 842 COMPARISON: 08/25/2024. FINDINGS: No acute fracture or prevertebral swelling. Cervical alignment is within normal limits and similar compared to theprior exam. Multilevel degenerative changes are seen throughout the cervical spinewith uncovertebral spurring and facet arthropathy present. No pneumothorax at the lung apices. Paraspinal muscles are normal. Leftchest pacemaker leads are noted.. IMPRESSION: No acute cervical spine fracture. -------- FINAL REPORT -------- Dictated By: JESUS SAL Dictated Date: 06/07/2025 14:41 ET Assigned Physician: JESUS SAL Reviewed and Electronically Signed By: JESUS SAL Signed Date: 06/07/2025 14:44 ET Workstation ID: [id number] Transcribed By: Self Edit Transcribed Date: 06/07/2025 14:41 ET Jb Josue MD IMG CT PROCEDURES Final Result * CT Head wo Contrast (06/07/2025 2:32 PM EDT) Anatomical Region Laterality Modality Head and Neck Computed Tomogra phy 06/07/2025 2:38 PM EDT Impressions 06/07/2025 2:41 PM EDT No acute intracranial abnormality -------- FINAL REPORT -------- Dictated By: JESUS SAL Dictated Date: 06/07/2025 14:38 ET Assigned Physician: JESUS SLA Reviewed and Electronically Signed By: JESUS SAL Signed Date: 06/07/2025 14:41 ET Workstation ID: [id number] Transcribed By: Self Edit Transcribed Date: 06/07/2025 14:38 ET Narrative 06/07/2025 2:41 PM EDT PROCEDURE: HEAD CT INDICATION: Injury TECHNIQUE: CT of the head without intravenous contrast. Multiplanar reformats. The examination was performed utilizing dose reduction techniques. Total DLP 1433 COMPARISON: 08/25/2024 FINDINGS: No acute territorial infarct, mass effect, or intracranial hemorrhage. Stable moderate scattered periventricular and subcortical white matter hypodensities are most likely related to chronic small vessel ischemic change. Ventricles are unchanged in size. No hydrocephalus. Visualized paranasal sinuses and mastoid air cells are clear. No scalp hematoma or skull fracture. Procedure Note Jesus Sal MD - 06/07/2025 PROCEDURE: HEAD CT INDICATION: Injury TECHNIQUE: CT of the head without intravenous contrast. Multiplanarreformats. The examination was performed utilizing dose reductiontechniques. Total DLP 1433 COMPARISON: 08/25/2024 FINDINGS: No acute territorial infarct, mass effect, or intracranial hemorrhage. Stable moderate scattered periventricular and subcortical white matterhypodensities are most likely related to chronic small vessel ischemicchange. Ventricles are unchanged in size. No hydrocephalus. Visualized paranasal sinuses and mastoid air cells are clear. No scalp hematoma or skull fracture. IMPRESSION: No acute intracranial abnormality -------- FINAL REPORT -------- Dictated By: JESUS SAL Dictated Date: 06/07/2025 14:38 ET Assigned Physician: JESUS SAL Reviewed and Electronically Signed By: JESUS SAL Signed Date: 06/07/2025 14:41 ET Workstation ID: [id number] Transcribed By: Self Edit Transcribed Date: 06/07/2025 14:38 ET us Jb Josue MD IM CT PROCEDURES Final Result * ECG 12 lead (06/07/2025 1:28 PM EDT) Ventricular Rate ECG 68 BPM GEMUSE Atrial Rate 67 BPM GEMUSE P-R Interval 140 ms GEMUSE QRS Duration 126 ms GEMUSE Q-T Interval 448 ms GEMUSE QTc 476 ms GEMUSE P Wave [place] 39 degrees GEMUSE R [place] -30 degrees GEMUSE T [place] 57 degrees GEMUSE ECG Interpretation Atrial-sense d ventricular- paced rhythm with frequent AV dual-paced complexes Abnormal ECG When compared with ECG of 25-AUG-2024 19:49, Vent. rate has decreased BY 31 BPM Confirmed by Ariadne HEWITT YUFENG ([id number]) on 06/07/2025 1:45:03 PM GEMUSE 06/07/2025 1:28 PM EDT 06/07/2025 1:45 PM EDT us Jb Josue MD ECG ORDERABLES Final Result GEMUSE * (ABNORMAL) Urinalysis with reflex microscopic and culture (06/07/2025 12:08 PM EDT) Specific [place] Urine 1.009 1.003 - 1.030 LAB URINALYSIS - AUTOMATED METHOD 06/07/2025 12:36 PM [facility] pH, Urine 7.5 5.0 - 8.0 pH LAB URINALYSIS - AUTOMATED METHOD 06/07/2025 12:36 PM [facility] Leukocytes, Urine Moderate(A) Negative LAB URINALYSIS - AUTOMATED METHOD 06/07/2025 12:36 PM [facility] Nitrite, Urine Negative Negative LAB URINALYSIS - AUTOMATED METHOD 06/07/2025 12:36 PM [facility] Protein, Urine Negative <=Trace mg/dL LAB URINALYSIS - AUTOMATED METHOD 06/07/2025 12:36 PM [facility] Glucose, Urine Negative Negative mg/dL LAB URINALYSIS - AUTOMATED METHOD 06/07/2025 12:36 PM [facility] Ketones, Urine Negative Negative mg/dL LAB URINALYSIS - AUTOMATED METHOD 06/07/2025 12:36 PM [facility] Urobilinogen , Urine 1.0 0.2 - 1.0 mg/dL LAB URINALYSIS - AUTOMATED METHOD 06/07/2025 12:36 PM [facility] Bilirubin, Urine Negative Negative LAB URINALYSIS - AUTOMATED METHOD 06/07/2025 12:36 PM EDT [facility] Blood, Urine Negative Negative LAB URINALYSIS - AUTOMATED METHOD 06/07/2025 12:36 PM [facility] RBC, Urine 6.6(H) 0 - 4 /HPF LAB URINALYSIS - AUTOMATED METHOD 06/07/2025 12:36 PM [facility] WBC, Urine 35.2(H) 0 - 4 /HPF LAB URINALYSIS - AUTOMATED METHOD 06/07/2025 12:36 PM [facility] Squamous Epithelial, Urine 19 0 - 60 /LPF LAB URINALYSIS - AUTOMATED METHOD 06/07/2025 12:36 PM [facility] Bacteria, Urine Many(A) Negative /HPF LAB URINALYSIS - AUTOMATED METHOD 06/07/2025 12:36 PM [facility] Hyaline Casts, Urine 2.8 0 - 3 /LPF LAB URINALYSIS - AUTOMATED METHOD 06/07/2025 12:36 PM [facility] Urine Urine specimen obtained by clean catch procedure / Unknown Non-blood Collection / Unknown 06/07/2025 12:08 PM EDT 06/07/2025 12:23 PM EDT us Jb Josue MD LAB URINE ORDERABLES Final Resu lt [facility] [address] [place] [address], * Respiratory virus panel molecular study (06/07/2025 12:08 PM EDT) Adenovirus Detection by PCR Not Detected Not Detected LAB MICROBIOLOGY METHOD 06/07/2025 1:41 PM EDT [facility] Influenza A PCR Not Detected Not Detected LAB MICROBIOLOGY METHOD 06/07/2025 1:41 PM EDT [facility] Influenza B PCR Not Detected Not Detected LAB MICROBIOLOGY METHOD 06/07/2025 1:41 PM EDT [facility] Coronavirus 229E Not Detected Not Detected LAB MICROBIOLOGY METHOD 06/07/2025 1:41 PM EDT [facility] Coronavirus HKU1 Not Detected Not Detected LAB MICROBIOLOGY METHOD 06/07/2025 1:41 PM EDT [facility] Coronavirus OC43 Not Detected Not Detected LAB MICROBIOLOGY METHOD 06/07/2025 1:41 PM EDT [facility] Coronavirus NL63 Not Detected Not Detected LAB MICROBIOLOGY METHOD 06/07/2025 1:41 PM EDT [facility] Parainfluenza Virus 1 Not Detected Not Detected LAB MICROBIOLOGY METHOD 06/07/2025 1:41 PM EDT [facility] Parainfluenza Virus 2 Not Detected Not Detected LAB MICROBIOLOGY METHOD 06/07/2025 1:41 PM EDT [facility] Parainfluenza Virus 3 Not Detected Not Detected LAB MICROBIOLOGY METHOD 06/07/2025 1:41 PM EDT [facility] Parainfluenza Virus 4 Not Detected Not Detected LAB MICROBIOLOGY METHOD 06/07/2025 1:41 PM EDT [facility] RSV PCR Not Detected Not Detected LAB MICROBIOLOGY METHOD 06/07/2025 1:41 PM EDT [facility] Human Metapneumovirus A and B Not Detected Not Detected LAB MICROBIOLOGY METHOD 06/07/2025 1:41 PM EDT [facility] Rhinovirus/Entero virus Not Detected Not Detected LAB MICROBIOLOGY METHOD 06/07/2025 1:41 PM EDT [facility] Bordetella pertussis Not Detected Not Detected LAB MICROBIOLOGY METHOD 06/07/2025 1:41 PM EDT [facility] Bordetella parapertussis Not Detected Not Detected LAB MICROBIOLOGY METHOD 06/07/2025 1:41 PM EDT [facility] Mycoplasma pneumo by PCR Not Detected Not Detected LAB MICROBIOLOGY METHOD 06/07/2025 1:41 PM EDT [facility] Chlamydia pneumoniae Not Detected Not Detected LAB MICROBIOLOGY METHOD 06/07/2025 1:41 PM EDT [facility] SARS COV-2 Not Detected Not Detected LAB MICROBIOLOGY METHOD 06/07/2025 1:41 PM EDT [facility] Swab Both anterior nares / Unknown Non-blood Collection / Unknown 06/07/2025 12:08 PM EDT 06/07/2025 12:24 PM EDT Narrative [facility] - 06/07/2025 1:41 PM EDT Testing was performed using the Seeq Respiratory Pathogen PCR Assay. All results must be correlated with the clinical findings. Results should not be used as the sole basis for diagnosis. False Negative results may occur from the presence of sequence variants in the region targeted by the assay or the presence of inhibitors. Results may be affected by concurrent antiviral/antimicrobial therapy or levels of organisms that are below the limit of detection. us Jb Josue MD LAB MICROBIOLOGY - GENERAL ORDE RABLES Final Result Performing Organization Address City/[facility]/ZIP Co de Phone Number [facility] [address] [place] [address], [place] [phone] * [place] urine culture tube (06/07/2025 12:08 PM EDT) Extra Tube Hold for add-ons. 06/07/2025 2:01 PM EDT [facility] Comment:Auto resulted. Urine Urine specimen obtained by clean catch procedure / Unknown Non-blood Collection / Unknown 06/07/2025 12:08 PM EDT 06/07/2025 12:23 PM EDT us Jb Josue MD LAB URINE ORDERABLES Final Resu lt Performing Organization Address City/[facility]/ZIP Co de Phone Number [facility] [address] [place] [address], [place] [phone] * (ABNORMAL) Culture urine (06/07/2025 12:08 PM EDT) Culture, Urine >=100,000 CFU/mL Escherichia coli(A) SARI 06/09/2025 10:25 AM EDT [facility] Comment: This is an edited result. Previous organism was Gram negative bacilli on 06/08/2025 at 1035 EDT. Urine Urine specimen obtained by clean catch procedure / Unknown Non-blood Collection / Unknown 06/07/2025 12:08 PM EDT 06/07/2025 12:36 PM EDT Narrative Organism Antibiotic Method Susceptibility Escherichia coli Amoxicillin/Clavulanate SARI <=2 ug/ml: Susceptible Escherichia coli Ampicillin/Sulbactam SARI <=2 ug/ml: Susceptible Escherichia coli Piperacillin/Tazobactam SARI <=4 ug/ml: Susceptible Escherichia coli Cefazolin (Urine) SARI <=1 ug/ml: Susceptible Escherichia coli Cefoxitin SARI <=4 ug/ml: Susceptible Escherichia coli Ceftazidime SARI <=0.5 ug/ml: Susceptible Escherichia coli Ceftriaxone SARI <=0.25 ug/ml: Susceptible Escherichia coli Cefepime SARI <=0.12 ug/ml: Susceptible Escherichia coli Meropenem SARI <=0.25 ug/ml: Susceptible Escherichia coli Amikacin SARI 4 ug/ml: Susceptible Escherichia coli Gentamicin SARI <=1 ug/ml: Susceptible Escherichia coli Ciprofloxacin SARI <=0.06 ug/ml: Susceptible Escherichia coli Levofloxacin SARI <=0.12 ug/ml: Susceptible Escherichia coli Nitrofurantoin SARI <=16 ug/ml: Susceptible Escherichia coli Trimethoprim/Sulfamethoxazole SARI >=320 ug/ml: Resistant Jb Josue MD LAB MICROBIOLOGY - GENERAL ORDE SPENSER Final Result [facility] [address] [place] [address], [place] [phone] * (ABNORMAL) CBC auto differential (06/07/2025 11:58 AM EDT) Pathologist [facility] WBC 9.3 4.8 - 10.8 K/mcL LAB HEMETOLOGY METHOD 06/07/2025 12:42 PM [facility] RBC 4.50 3.80 - 4.80 M/mcL LAB HEMETOLOGY METHOD 06/07/2025 12:42 PM [facility] Hemoglobin 11.7 11.5 - 16.0 g/dL LAB HEMETOLOGY METHOD 06/07/2025 12:42 PM [facility] Hematocrit 38.3 35.0 - 47.0 % LAB HEMETOLOGY METHOD 06/07/2025 12:42 PM [facility] MCV 85.5 79.0 - 98.0 FL LAB HEMETOLOGY METHOD 06/07/2025 12:42 PM [facility] MCH 26.1(L) 27.0 - 32.0 pcg LAB HEMETOLOGY METHOD 06/07/2025 12:42 PM [facility] MCHC 30.5(L) 32.0 - 37.0 g/dL LAB HEMETOLOGY METHOD 06/07/2025 12:42 PM [facility] RDW 13.4 11.0 - 15.0 % LAB HEMETOLOGY METHOD 06/07/2025 12:42 PM [facility] Platelets 259 130 - 400 K/[facility] HEMETOLOGY METHOD 06/07/2025 12:42 PM [facility] MPV 9.8 7.0 - 11.0 FL LAB HEMETOLOGY METHOD 06/07/2025 12:42 PM [facility] NRBC 0.0 <1.0 % LAB HEMETOLOGY METHOD 06/07/2025 12:42 PM [facility] NRBC Absolute 0.00 <0.10 K/[facility] LAB HEMETOLOGY METHOD 06/07/2025 12:42 PM [facility] Neutrophils Relative 80.9 % LAB HEMETOLOGY METHOD 06/07/2025 12:42 PM [facility] Lymphocytes Relative 10.7 % LAB HEMETOLOGY METHOD 06/07/2025 12:42 PM [facility] Monocytes Relative 6.2 % LAB HEMETOLOGY METHOD 06/07/2025 12:42 PM [facility] Eosinophils Relative 1.5 % LAB HEMETOLOGY METHOD 06/07/2025 12:42 PM [facility] Basophils Relative 0.4 % LAB HEMETOLOGY METHOD 06/07/2025 12:42 PM [facility] Immature Granulocytes Relative 0.3 % LAB HEMETOLOGY METHOD 06/07/2025 12:42 PM [facility] Neutrophils Absolute 7.55(H) 1.50 - 7.00 K/mcL LAB HEMETOLOGY METHOD 06/07/2025 12:42 PM [facility] Lymphocytes Absolute 1.00 1.00 - 5.00 K/mcL LAB HEMETOLOGY METHOD 06/07/2025 12:42 PM [facility] Monocytes Absolute 0.58 0.20 - 1.00 K/mcL LAB HEMETOLOGY METHOD 06/07/2025 12:42 PM [facility] Eosinophils Absolute 0.14 0.00 - 0.50 K/mcL LAB HEMETOLOGY METHOD 06/07/2025 12:42 PM [facility] Basophils Absolute 0.04 0.00 - 0.20 K/mcL LAB HEMETOLOGY METHOD 06/07/2025 12:42 PM [facility] Immature Granulocytes Absolute 0.03 0.00 - 0.03 K/mcL LAB HEMETOLOGY METHOD 06/07/2025 12:42 PM [facility] Blood Venous blood specimen / Unknown Venipuncture / Unknown 06/07/2025 11:58 AM EDT 06/07/2025 12:24 PM EDT us Jb Josue MD LAB BLOOD ORDERABLES Final Resu lt Performing Organization Address [facility]/ZIP Co de Phone Number [facility] [address] [place] [address], [place] [phone] * Cardiac Enzymes - CPK (06/07/2025 11:58 AM EDT) Total CK 77 22 - 269 unit/L LAB CHEMISTRY METHOD 06/07/2025 1:33 PM EDT [facility] Comment:Results verified by repeat testing Blood Venous blood specimen / Unknown Venipuncture / Unknown 06/07/2025 11:58 AM EDT 06/07/2025 12:24 PM EDT us Jb Josue MD LAB BLOOD ORDERABLES Final Resu lt Performing Organization Address [facility] Co de Phone Number [facility] [address] [place] [address], [place] [phone] * (ABNORMAL) Ammonia (06/07/2025 11:58 AM EDT) Ammonia 36(H) 11 - 35 mcmol/L LAB CHEMISTRY METHOD 06/07/2025 12:55 PM EDT [facility] Comment:Hemolysis present Blood Venous blood specimen / Unknown Venipuncture / Unknown 06/07/2025 11:58 AM EDT 06/07/2025 12:24 PM EDT us Jb Josue MD LAB BLOOD ORDERABLES Final Resu lt Performing Organization Address [facility]/ZIP Co de Phone Number [facility] [address] [place] [address], [place] [phone] * (ABNORMAL) Comprehensive metabolic panel (06/07/2025 11:58 AM EDT) [facility] Signature Sodium 138 133 - 145 mmol/L LAB CHEMISTRY METHOD 06/07/2025 1:17 PM [facility] Potassium 3.9 3.5 - 5.5 mmol/L LAB CHEMISTRY METHOD 06/07/2025 1:17 PM [facility] Chloride 104 96 - 110 mmol/L LAB CHEMISTRY METHOD 06/07/2025 1:17 PM [facility] CO2 29 21 - 32 mmol/L LAB CHEMISTRY METHOD 06/07/2025 1:17 PM [facility] Anion Gap 5 3 - 11 LAB CHEMISTRY METHOD 06/07/2025 1:17 PM [facility] Glucose 148(H) 70 - 100 mg/dL LAB CHEMISTRY METHOD 06/07/2025 1:17 PM [facility] BUN 8 5 - 25 mg/dL LAB CHEMISTRY METHOD 06/07/2025 1:17 PM [facility] Creatinine 0.87 0.50 - 1.10 mg/dL LAB CHEMISTRY METHOD 06/07/2025 1:17 PM [facility] eGFR 67 >=60 mL/min/1. 73m2 LAB CHEMISTRY METHOD 06/07/2025 1:17 PM [facility] Comment:Calculation based on the Chronic Kidney Disease Epidemiology Collaboration (CKD-EPI) equation refit without adjustment for race. BUN/Creatinine Ratio 9.2 LAB CHEMISTRY METHOD 06/07/2025 1:17 PM [facility] Calcium 8.8 8.5 - 10.5 mg/dL LAB CHEMISTRY METHOD 06/07/2025 1:17 PM [facility] AST (SGOT) 18 10 - 42 unit/L LAB CHEMISTRY METHOD 06/07/2025 1:17 PM [facility] ALT (SGPT) 25 10 - 60 unit/L LAB CHEMISTRY METHOD 06/07/2025 1:17 PM EDT [facility] Alkaline Phosphatase 73 42 - 121 unit/L LAB CHEMISTRY METHOD 06/07/2025 1:17 PM EDT [facility] Total Protein 6.7 6.0 - 8.0 g/dL LAB CHEMISTRY METHOD 06/07/2025 1:17 PM EDT [facility] Albumin 3.2 3.2 - 5.0 g/dL LAB CHEMISTRY METHOD 06/07/2025 1:17 PM EDT [facility] Total Bilirubin 0.3 0.0 - 1.4 mg/dL LAB CHEMISTRY METHOD 06/07/2025 1:17 PM EDT [facility] Blood Venous blood specimen / Unknown Venipuncture / Unknown 06/07/2025 11:58 AM EDT 06/07/2025 12:24 PM EDT Jb Josue MD LAB BLOOD ORDERABLES Final Resu lt [facility] [address] [place] [address], * Hemoglobin A1c (01/23/2023) Hemoglobin A1C 0.0 % Comment:abstracted, no inter pretation Blood Venous blood specimen / Unknown Historical Provider LAB BLOOD ORDERABLES Lyndsey l Result * Lipid panel (01/23/2023) LDL/HDL Ratio 0 Comment:abstracted, no inter pretation Triglycerides 0 mg/dL Comment:abstracted, no inter pretation Cholesterol 0 mg/dL Comment:abstracted, no inter pretation HDL 0 mg/dL Comment:abstracted, no inter pretation LDL Cholesterol 0 mg/dL Comment:abstracted, no inter pretation Blood Venous blood specimen / Unknown Historical Provider LAB BLOOD ORDERABLES Lyndsey l Result * HM Urine Albumin Creatinine Ratio (01/23/2020) Urine Albumin Creatinine Ratio abstarcted us Historical Provider HEALTH MAINTENANCE Final Result from Last 3 Months or Most Recently Relevant to Health Maintenance Insurance MEDICARE [place]ICAID [place] Advance Directives Documents on File Type Date Recorded 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 Do not modify or discontinue any currently active code status orders. Healthcare Agents on File Name Relationship Healthcare Agent [facility] p Communication Sushil [facility] Relative Health Care Agent Rj Andino [facility] are Agent Care Teams Labor Relations Or Personnel Negotiator Relationship Specialty Start Date End Date Manju Lieberman PA [address] [place] [phone] PCP - General Internal Medicine 03/21/22
== END 2025-08-12 12:19 | disposition home or self-care (01) ==
LOC: HO.HSMS 10:18
PROVIDERS: PCP Physician Assistant; Visit Provider Nurse Practitioner Family
DX: R41.89 Other symptoms and signs involving cognitive functions and awareness (principal)
CPT/HCPCS: 99213